=== PATIENT | male | born 1940 | race Caucasian/White ===

== ENCOUNTER 2025-07-23 11:50 | Emergency (ER) | payer OTHER ==
[~2025-07-23] VITALS: Wt 82.4 kg
[2025-07-23 12:29] LABS: BASOPHILS 0.4 % (0.2-1.2); EOSINOPHILS 1.2 % (0.8-7.0); LYMPHOCYTES 23.5 % (21.8-53.1); MCH 30.6 PG (25.7-32.2); MCHC 34.0 g/dL (32.3-36.5); MCV 90.0 fL (79.0-92.2); MONOCYTES 9.0 % (5.3-12.2); NEUTROPHILS 65.7 % (34.0-67.9); RBC 4.80 M/uL (4.63-6.08)
[2025-07-23 12:48] LABS: ALT (SGPT) 21.0 U/L (14-59); AST (SGOT) 29.0 U/L (15-37); GLOMERULAR FILTRATION RATE,EST 85.0 mL/min (>60); PROTEIN, TOTAL 6.6 g/dL (6.4-8.2); UREA NITROGEN 15.0 mg/dL (7-18)
[2025-07-23] MEDS ORDERED: OLANZapine 10 MG TABDIS PO ONE (17:45)
[2025-07-23] MEDS ORDERED: HALOPERIDOL LACTATE 5 MG/ML VIAL IM ONE (18:15)
--- NOTE | 2025-07-23 18:27 | EKG ---
[facility] [address] [place], [place] [address] Signed Sinus rhythm with sinus arrhythmia with 1st degree AV block Otherwise normal ECG No previous ECGs available Confirmed by Chad Vieira DO ([id number]) on 07/23/2025 6:27:36 PM Electronically Signed By: CHAD VIEIRA DO 07/23/25 1827 PATIENT NAME: PAOLA SRIVASTAVA JANY Electrocardiogram DATE OF : 38 PHYSICIAN: CHAD VIEIRA DO REPORT #: [id number] REPORT IS CONFIDENTIAL AND NOT TO BE RELEASED WITHOUT AUTHORIZATION
[2025-07-23 19:49] LABS: BLOOD/HGB, URINE LARGE (Negative); KETONE, URINE NEGATIVE (Negative); LEUK ESTERASE, URINE NEGATIVE (negative); NITRITE, URINE NEGATIVE (negative)
[2025-07-23 19:55] LABS: EPITHELIAL CELLS, URINE NONE SEEN /lpf (0-1+)
[2025-07-23 19:56] LABS: BACTERIA, URINE NONE SEEN /hpf (negative); CASTS, URINE NONE SEEN \\lpf; CRYSTALS, URINE CALCIUM OXALATE 1+ (0-1+); REFLEX CULTURE, URINE No (No)
[2025-07-24] MEDS ORDERED: HALOPERIDOL LACTATE 5 MG/ML VIAL IM ONE (16:45)
[2025-07-25] MEDS ORDERED: QUETIAPINE FUMARATE 25 MG TAB PO SCH (09:00)
[2025-07-28] MEDS ORDERED: LORazepam 0.5 MG TAB PO ONE (11:15)
[2025-07-28] MEDS ORDERED: QUETIAPINE FUMARATE 25 MG TAB PO ONE (11:15)
[2025-07-28] MEDS ORDERED: ATIVAN1 MG PO (13:32)
[2025-07-28] MEDS ORDERED: SEROQUEL25 MG PO ×2 (13:32)
[2025-07-28] MEDS ORDERED: LORazepam 2 MG/ML VIAL IM ONE (18:45)
[2025-07-28] MEDS ORDERED: HALOPERIDOL LACTATE 5 MG/ML VIAL IM ONE (18:45)
[2025-07-29 10:50] VITALS: BP 133/88
== END 2025-07-29 10:50 | disposition home or self-care (01) ==
LOC: ED 11:50
PROVIDERS: Emergency Medicine
DX: R41.82 Altered mental status, unspecified (principal); F03.911 Unspecified dementia, unspecified severity, with agitation; Z91.018 Allergy to other foods
CPT/HCPCS: 36415; 70450; 80053; 81001; 85025; 93005; 93010; 96372; 99285-25; A9270; J1200; J1630